=== PATIENT | female | born 1965 | race Caucasian/White ===

== ENCOUNTER 2016-11-15 15:51 | Inpatient (IN) | payer BC ==
[2016-11-15] MEDS ORDERED: LEVOFLOXACIN 750MG-D5W PMX 750 MG in DEXTROSE/WATER 1 150ML.BAG IVPB STA ×2 (15:54→17:11)
[2016-11-15] MEDS ORDERED: IBUPROFEN IV 600 MG in SODIUM CHLORIDE 0.9% 250 ML IV STA (15:54)
[2016-11-15] MEDS ORDERED: ACETAMINOPHEN IV (For NPO) 1,000 MG in EMPTY BAG 1 BAG IVPB STA (15:54)
[2016-11-15] MEDS ORDERED: PIPERACILLIN-TAZOBACTAM 3.375 GM in DEXTROSE/WATER 1 50ML.BAG IVPB STA (15:56)
--- NOTE | 2016-11-15 15:56 | ED ---
General Adult HPI - General Stated complaint: altered Time Seen by Provider: 11/15/16 15:51 Source: RN notes reviewed - History of Present Illness Initial comments: This is a female who is brought in by EMS at an unknown age but probably around 51. EMS was called to Dr. Anthony's parking lot with the patient was found with her . states she's been altered mental over the last few weeks and been jaundiced over the last few weeks but she's been refusing to go to the hospital. Patient is unable to give any history herself. According to EMS finally got her to get into the car because she was almost completely unresponsive and she couldn't refuse to go any longer. states she is a daily drinker according to EMS. states today she was also vomiting up coffee ground emesis. According to EMS had no further information aside from the altered mental status and the coffee-ground emesis. - Related Data Home Medications Medication Instructions Recorded Confirmed No Known Home Medications [No 11/15/16 11/15/16 Known Home Medications] Allergies Allergy/AdvReac Type Severity Reaction Status Date / Time No Known Allergies Allergy Verified 11/15/16 18:36 Review of Systems ROS Statement: Those systems with pertinent positive or pertinent negative responses have been documented in the HPI. ROS Other: All systems not noted in ROS Statement are negative. General Exam - General Exam Comments Initial Comments: GENERAL: Patient is well-developed and well-nourished. Patient is nontoxic and well- hydrated and is in moderate distress. ENT: Neck is soft and supple. No significant lymphadenopathy is noted. Oropharynx is clear. Moist mucous membranes. Neck has full range of motion without eliciting any pain. EYES: Patient has sclera icterus. Extraocular movements were intact and pupils were equal round and reactive to light. Eyelids were unremarkable. PULMONARY: Patient has crackles bilaterally through two thirds of the lung CARDIOVASCULAR: There is a regular rate and rhythm without any murmurs gallops or rubs. ABDOMEN: Soft and nontender with normal bowel sounds. No palpable organomegaly was noted. There is no palpable pulsatile mass. SKIN: Patient has multiple excoriated lesions none of which appear to be infected on her back and arms. NEUROLOGIC: Patient is alert and oriented 1. Cranial nerves II through XII are grossly intact. Motor and sensory are also intact. Normal speech, volume and content. Symmetrical smile. MUSCULOSKELETAL: Normal extremities with adequate strength and full range of motion. Patient has 2+ edema bilaterally more in the right than the left. LYMPHATICS: No significant lymphadenopathy is noted PSYCHIATRIC: Unable to secondary to altered mental status Course Vital Signs 11/15/16 11/15/16 11/15/16 15:56 16:44 17:35 Temperature 101.9 F H 101.1 F H Pulse Rate 111 H 106 H 103 H Respiratory 36 H 30 H 30 H Rate Blood Pressure 141/72 122/54 108/54 O2 Sat by Pulse 88 L 97 99 Oximetry Procedures - Intubation Time Out Performed: Yes Sedative: Versed Paralytic: Succinylcholine Laryngoscope: Herrera Size: 3 ET Tube Size: 8 ET Tube Uncuffed: No Tube Secured Location: teeth Tube Placement Confirmation: visualized tube passing through cords, equal breath sounds bilaterally, no breath sounds over epigastrium, confirmation by capnometry Patient Tolerated Procedure: well Intubation Complications: none Medical Decision Making - Medical Decision Making EKG shows sinus tachycardia at 110 bpm CO interval 166 QRS is 96 QT interval 354 QTC is 479. Patient's EKG shows no ST segment elevation or depression I went in to reevaluate the patient after having given Lasix she started having a little bit of low blood pressure psychiatric or more fluid at which point in time she had more difficult to breathing. At this point time I determined it was safer to intubate the patient. I and abated the patient without complication. Repeat portable chest for the intubation showed good placement of the ET tube - Lab Data Result diagrams: 11/15/16 16:00 11/15/16 16:00 Lab Results 11/15/16 11/15/16 11/15/16 Range/Units 16:00 16:00 16:00 WBC 9.5 (3.8-10.6) k/uL RBC 3.96 (3.80-5.40) m/uL Hgb 12.2 (11.4-16.0) gm/dL Hct 36.9 (34.0-46.0) % MCV 93.1 (80.0-100.0) fL MCH 30.9 (25.0-35.0) pg MCHC 33.2 (31.0-37.0) g/dL RDW 16.5 H (11.5-15.5) % Plt Count 233 (150-450) k/uL Neutrophils % 79 % Lymphocytes % 11 % Monocytes % 8 % Eosinophils % 0 % Basophils % 1 % Neutrophils # 7.6 (1.3-7.7) k/uL Lymphocytes # 1.0 (1.0-4.8) k/uL Monocytes # 0.7 (0-1.0) k/uL Eosinophils # 0.0 (0-0.7) k/uL Basophils # 0.1 (0-0.2) k/uL Hypochromasia Slight Poikilocytosis Slight Anisocytosis Slight PT (9.0-12.0) sec INR (<1.1) APTT (22.0-30.0) sec Sodium 140 (137-145) mmol/L Potassium 4.3 (3.5-5.1) mmol/L Chloride 112 H (98-107) mmol/L Carbon Dioxide 16 L (22-30) mmol/L Anion Gap 12 mmol/L BUN 18 H (7-17) mg/dL Creatinine 1.17 H (0.52-1.04) mg/dL Est GFR (MDRD) Af Amer 59 (>60 ml/min/1.73 sqM) Est GFR (MDRD) Non-Af 49 (>60 ml/min/1.73 sqM) Glucose 74 (74-99) mg/dL POC Glucose (mg/dL) (75-99) mg/dL POC Glu Keno Writer ID Plasma Lactic Acid Kentrell (0.7-2.0) mmol/L Calcium 8.4 (8.4-10.2) mg/dL Total Bilirubin 19.2 H* (0.2-1.3) mg/dL AST 112 H (14-36) U/L ALT 27 (9-52) U/L Alkaline Phosphatase 558 H (38-126) U/L Ammonia (<30) umol/L Total Creatine Kinase 381 H (30-135) U/L CK-MB (CK-2) 3.3 H* (0.0-2.4) ng/mL CK-MB (CK-2) Rel Index 0.9 Troponin I 0.016 (0.000-0.034) ng/mL NT-Pro-B Natriuret Pep pg/mL Total Protein 7.7 (6.3-8.2) g/dL Albumin 2.7 L (3.5-5.0) g/dL Urine Color Urine Appearance (Clear) Urine pH (5.0-8.0) Ur Specific [place] (1.001-1.035) Urine Protein (Negative) Urine Glucose (UA) (Negative) Urine Ketones (Negative) Urine Blood (Negative) Urine Nitrite (Negative) Urine Bilirubin (Negative) Urine Urobilinogen (<2.0) mg/dL Ur Leukocyte Esterase (Negative) Urine WBC (0-5) /hpf Ur Squamous Epith Cells (0-4) /hpf Urine Bacteria (None) /hpf Hyaline Casts (0-2) /lpf Urine Mucus (None) /hpf Influenza Type A RNA (Not Detectd) Influenza Type B (PCR) (Not Detectd) 11/15/16 11/15/16 11/15/16 Range/Units 16:00 16:00 16:00 WBC (3.8-10.6) k/uL RBC (3.80-5.40) m/uL Hgb (11.4-16.0) gm/dL Hct (34.0-46.0) % MCV (80.0-100.0) fL MCH (25.0-35.0) pg MCHC (31.0-37.0) g/dL RDW (11.5-15.5) % Plt Count (150-450) k/uL Neutrophils % % Lymphocytes % % Monocytes % % Eosinophils % % Basophils % % Neutrophils # (1.3-7.7) k/uL Lymphocytes # (1.0-4.8) k/uL Monocytes # (0-1.0) k/uL Eosinophils # (0-0.7) k/uL Basophils # (0-0.2) k/uL Hypochromasia Poikilocytosis Anisocytosis PT 24.4 H (9.0-12.0) sec INR 2.5 (<1.1) APTT 32.5 H (22.0-30.0) sec Sodium (137-145) mmol/L Potassium (3.5-5.1) mmol/L Chloride (98-107) mmol/L Carbon Dioxide (22-30) mmol/L Anion Gap mmol/L BUN (7-17) mg/dL Creatinine (0.52-1.04) mg/dL Est GFR (MDRD) Af Amer (>60 ml/min/1.73 sqM) Est GFR (MDRD) Non-Af (>60 ml/min/1.73 sqM) Glucose (74-99) mg/dL POC Glucose (mg/dL) (75-99) mg/dL POC Glu Keno Writer ID Plasma Lactic Acid Kentrell 2.8 H* (0.7-2.0) mmol/L Calcium (8.4-10.2) mg/dL Total Bilirubin (0.2-1.3) mg/dL AST (14-36) U/L ALT (9-52) U/L Alkaline Phosphatase (38-126) U/L Ammonia 148 H (<30) umol/L Total Creatine Kinase (30-135) U/L CK-MB (CK-2) (0.0-2.4) ng/mL CK-MB (CK-2) Rel Index Troponin I (0.000-0.034) ng/mL NT-Pro-B Natriuret Pep 1830 pg/mL Total Protein (6.3-8.2) g/dL Albumin (3.5-5.0) g/dL Urine Color Urine Appearance (Clear) Urine pH (5.0-8.0) Ur Specific [place] (1.001-1.035) Urine Protein (Negative) Urine Glucose (UA) (Negative) Urine Ketones (Negative) Urine Blood (Negative) Urine Nitrite (Negative) Urine Bilirubin (Negative) Urine Urobilinogen (<2.0) mg/dL Ur Leukocyte Esterase (Negative) Urine WBC (0-5) /hpf Ur Squamous Epith Cells (0-4) /hpf Urine Bacteria (None) /hpf Hyaline Casts (0-2) /lpf Urine Mucus (None) /hpf Influenza Type A RNA (Not Detectd) Influenza Type B (PCR) (Not Detectd) 11/15/16 11/15/16 11/15/16 Range/Units 16:00 16:00 16:08 WBC (3.8-10.6) k/uL RBC (3.80-5.40) m/uL Hgb (11.4-16.0) gm/dL Hct (34.0-46.0) % MCV (80.0-100.0) fL MCH (25.0-35.0) pg MCHC (31.0-37.0) g/dL RDW (11.5-15.5) % Plt Count (150-450) k/uL Neutrophils % % Lymphocytes % % Monocytes % % Eosinophils % % Basophils % % Neutrophils # (1.3-7.7) k/uL Lymphocytes # (1.0-4.8) k/uL Monocytes # (0-1.0) k/uL Eosinophils # (0-0.7) k/uL Basophils # (0-0.2) k/uL Hypochromasia Poikilocytosis Anisocytosis PT (9.0-12.0) sec INR (<1.1) APTT (22.0-30.0) sec Sodium (137-145) mmol/L Potassium (3.5-5.1) mmol/L Chloride (98-107) mmol/L Carbon Dioxide (22-30) mmol/L Anion Gap mmol/L BUN (7-17) mg/dL Creatinine (0.52-1.04) mg/dL Est GFR (MDRD) Af Amer (>60 ml/min/1.73 sqM) Est GFR (MDRD) Non-Af (>60 ml/min/1.73 sqM) Glucose (74-99) mg/dL POC Glucose (mg/dL) 67 L (75-99) mg/dL POC Glu Keno Writer ID Tarun Oneal Plasma Lactic Acid Kentrell (0.7-2.0) mmol/L Calcium (8.4-10.2) mg/dL Total Bilirubin (0.2-1.3) mg/dL AST (14-36) U/L ALT (9-52) U/L Alkaline Phosphatase (38-126) U/L Ammonia (<30) umol/L Total Creatine Kinase (30-135) U/L CK-MB (CK-2) (0.0-2.4) ng/mL CK-MB (CK-2) Rel Index Troponin I (0.000-0.034) ng/mL NT-Pro-B Natriuret Pep pg/mL Total Protein (6.3-8.2) g/dL Albumin (3.5-5.0) g/dL Urine Color Dark Brown Urine Appearance Cloudy H (Clear) Urine pH 6.5 (5.0-8.0) Ur Specific [place] 1.013 (1.001-1.035) Urine Protein 1+ H (Negative) Urine Glucose (UA) Negative (Negative) Urine Ketones Negative (Negative) Urine Blood Negative (Negative) Urine Nitrite Negative (Negative) Urine Bilirubin 4+ H (Negative) Urine Urobilinogen 4.0 (<2.0) mg/dL Ur Leukocyte Esterase Trace H (Negative) Urine WBC 1 (0-5) /hpf Ur Squamous Epith Cells <1 (0-4) /hpf Urine Bacteria Moderate H (None) /hpf Hyaline Casts 3 H (0-2) /lpf Urine Mucus Rare H (None) /hpf Influenza Type A RNA Not Detected (Not Detectd) Influenza Type B (PCR) Not Detected (Not Detectd) 11/15/16 Range/Units 17:15 WBC (3.8-10.6) k/uL RBC (3.80-5.40) m/uL Hgb (11.4-16.0) gm/dL Hct (34.0-46.0) % MCV (80.0-100.0) fL MCH (25.0-35.0) pg MCHC (31.0-37.0) g/dL RDW (11.5-15.5) % Plt Count (150-450) k/uL Neutrophils % % Lymphocytes % % Monocytes % % Eosinophils % % Basophils % % Neutrophils # (1.3-7.7) k/uL Lymphocytes # (1.0-4.8) k/uL Monocytes # (0-1.0) k/uL Eosinophils # (0-0.7) k/uL Basophils # (0-0.2) k/uL Hypochromasia Poikilocytosis Anisocytosis PT (9.0-12.0) sec INR (<1.1) APTT (22.0-30.0) sec Sodium (137-145) mmol/L Potassium (3.5-5.1) mmol/L Chloride (98-107) mmol/L Carbon Dioxide (22-30) mmol/L Anion Gap mmol/L BUN (7-17) mg/dL Creatinine (0.52-1.04) mg/dL Est GFR (MDRD) Af Amer (>60 ml/min/1.73 sqM) Est GFR (MDRD) Non-Af (>60 ml/min/1.73 sqM) Glucose (74-99) mg/dL POC Glucose (mg/dL) 78 (75-99) mg/dL POC Glu Keno Writer Antonette Caba Plasma Lactic Acid Kentrell (0.7-2.0) mmol/L Calcium (8.4-10.2) mg/dL Total Bilirubin (0.2-1.3) mg/dL AST (14-36) U/L ALT (9-52) U/L Alkaline Phosphatase (38-126) U/L Ammonia (<30) umol/L Total Creatine Kinase (30-135) U/L CK-MB (CK-2) (0.0-2.4) ng/mL CK-MB (CK-2) Rel Index Troponin I (0.000-0.034) ng/mL NT-Pro-B Natriuret Pep pg/mL Total Protein (6.3-8.2) g/dL Albumin (3.5-5.0) g/dL Urine Color Urine Appearance (Clear) Urine pH (5.0-8.0) Ur Specific [place] (1.001-1.035) Urine Protein (Negative) Urine Glucose (UA) (Negative) Urine Ketones (Negative) Urine Blood (Negative) Urine Nitrite (Negative) Urine Bilirubin (Negative) Urine Urobilinogen (<2.0) mg/dL Ur Leukocyte Esterase (Negative) Urine WBC (0-5) /hpf Ur Squamous Epith Cells (0-4) /hpf Urine Bacteria (None) /hpf Hyaline Casts (0-2) /lpf Urine Mucus (None) /hpf Influenza Type A RNA (Not Detectd) Influenza Type B (PCR) (Not Detectd) Critical Care Time Critical Care Time: Yes Total Critical Care Time: 45 Disposition Clinical Impression: Hepatic encephalopathy, Pneumonia, Sepsis, Pulmonary edema, Alcoholic hepatitis , Upper GI bleed Disposition: ADMITTED IP TO THIS [facility] Time of Disposition: 17:11
[2016-11-15] MEDS: SODIUM CHLORIDE 0.9% 500 ML IV SCH ×2 (16:09→17:16)
[2016-11-15] MEDS ORDERED: DEXTROSE 50%-WATER 50 ML SYRINGE IVP STA (16:14)
[2016-11-15 16:22] LABS: Glucose,Whole Blood 67 mg/dL (75-99)
[2016-11-15 16:40] LABS: Anisocytosis Slight; Basophils # (A) 0.1 k/uL (0-0.2); Basophils % (A) 1 %; CH 30.1; CHCM 32.6; Eosinophils % (A) 0 %; HCT 36.9 % (34.0-46.0); HDW 3.46; HGB 12.2 gm/dL (11.4-16.0); Hypochromasia Slight; Luc # (Auto) 0.17; Luc % (Auto) 2; Lymphocytes % (A) 11 %; MCH 30.9 pg (25.0-35.0); MCHC 33.2 g/dL (31.0-37.0); MCV 93.1 fL (80.0-100.0); Mean Platelet Volume 8.5; Monocytes # (A) 0.7 k/uL (0-1.0); Monocytes % (A) 8 %; Neutrophils # (A) 7.6 k/uL (1.3-7.7); Neutrophils % (A) 79 %; Poikilocytosis Slight; RBC 3.96 m/uL (3.80-5.40); RDW 16.5 % (11.5-15.5); WBC 9.5 k/uL (3.8-10.6); WBC (Perox) 9.42
[2016-11-15 16:43] LABS: Appearance,Urine Cloudy (Clear); Bacteria,Urine Moderate /hpf; Bilirubin,Urine 4+ (Negative); Glucose,Urine (UA) Negative (Negative); Ketones,Urine Negative (Negative); Leukocyte Esterase,Urine Trace (Negative); Mucus,Urine Rare /hpf; Nitrite,Urine Negative (Negative); PH, Urine 6.5 (5.0-8.0); Particle Count 26283; Protein,Urine 1+ (Negative); Specific Gravity,Urine 1.013 (1.001-1.035); Squamous Epithelial Cell,Urine <1 /hpf (0-4); UA Billing (MACRO vs. MICRO) MICRO; WBC,Urine 1 /hpf (0-5)
[2016-11-15 16:51] LABS: Calcium 8.4 mg/dL (8.4-10.2); Potassium 4.3 mmol/L (3.5-5.1); Total Protein 7.7 g/dL (6.3-8.2)
--- NOTE | 2016-11-15 16:51 | CT ---
EXAMINATION TYPE: CT brain wo con DATE OF EXAM: 11/15/2016 COMPARISON: NONE HISTORY: Altered mental status. CT DLP: 1106 mGycm Automated exposure control for dose reduction was used. FINDINGS: Central structures are midline. There is no evidence of hydrocephalus. No acute focal lesion, mass ef fect or midline shift is seen. I do not see evidence of intracranial blood. Visualized portions of the paranasal sinuses and mastoids are clear. No depressed skull fracture is s een. IMPRESSION: NO ACUTE INTRACRANIAL ABNORMALITY.
--- NOTE | 2016-11-15 16:58 | XR ---
EXAMINATION TYPE: XR chest 2V DATE OF EXAM: 11/15/2016 HISTORY: Fever. REFERENCE: NONE. FINDINGS: There is diffuse alveolar airspace disease. The heart is enlarged. Pulmonary vasculature is obscured. There is confluent left basilar airspace disease. I suspect small effusions. IMPRESSION: 1. FINDINGS MOST CONSISTENT WITH CONGESTIVE HEART FAILURE. 2. I COULD NOT EXCLUDE SUPERIMPOSED PNEUMONIA.
[2016-11-15 17:00] LABS: Total Bilirubin 19.2 mg/dL (0.2-1.3)
[2016-11-15] MEDS ORDERED: FUROSEMIDE 10 MG/ML 4 ML VIAL IV STA (17:10)
[2016-11-15 17:11] LABS: INR 2.5 (<1.1); Partial Thromboplastin Time 32.5 sec (22.0-30.0); Prothrombin Time 24.4 sec (9.0-12.0)
[2016-11-15] MEDS ORDERED: LACTULOSE 200 GM/300 ML (FROM 1/2 GAL JUG) RECTAL ONE (17:15)
[2016-11-15 17:18] LABS: Glucose,Whole Blood 78 mg/dL (75-99)
[2016-11-15] MEDS ORDERED: PANTOPRAZOLE 40 MG/10 ML VIAL IVP ONE (17:20)
[2016-11-15 17:23] LABS: Troponin I 0.016 ng/mL (0.000-0.034)
[2016-11-15 17:24] LABS: Creatine Kinase MB 3.3 ng/mL (0.0-2.4)
[2016-11-15] MEDS ORDERED: NALOXONE 0.4 MG/ML 1 ML VIAL IV PRN (17:37)
[2016-11-15] MEDS ORDERED: LACTULOSE 200 GM/300 ML (FROM 1/2 GAL JUG) RECTAL SCH ×2 (18:00→22:00)
[2016-11-15] MEDS ORDERED: SUCCINYLCHOLINE CHLORIDE VIAL 200 MG/10 ML VIAL IV STA (18:05)
[2016-11-15] MEDS ORDERED: MIDAZOLAM (PF) 1 MG/ML 5 ML VIAL IV STA (18:05)
[2016-11-15] MEDS: LORazepam 2 MG/ML SYRINGE IV STA ×2 (18:30→18:54)
--- NOTE | 2016-11-15 19:12 | XR ---
EXAMINATION TYPE: XR chest 1V portable DATE OF EXAM: 11/15/2016 COMPARISON: 11/15/2016 HISTORY: Endotracheal tube placement TECHNIQUE: Single frontal view of the chest is obtained. FINDINGS: Endotracheal tube has been placed in the interim terminating at the level of aortic arch, approximately 1.5 cm from the haydee. This is appropriately placed. There are overall low lung volume s with diffuse patchy alveolar and interstitial opacities. There is obscuration of the retrocardiac a irspace. Costophrenic angles are not well delineated. Multifocal opacities partially obscure the card iac silhouette, which appears prominent in size but similar to the prior. Degenerative changes are se en of the glenohumeral joints. IMPRESSION: 1. Interval placement of an appropriately placed endotracheal tube. 2. Low lung volumes with multifocal interstitial and alveolar opacities which may be on the basis of cardiogenic fluid overload although multifocal pneumonia is also a consideration.
[2016-11-15 19:16] LABS: ABG Base Excess -9.7 mmol/L; ABG HCO3 16 mmol/L (21-25); ABG PCO2 38 mmHg (35-45); ABG PH 7.25 (7.35-7.45); ABG PO2 129 mmHg (83-108); ABG TCO2 17 mmol/L (19-24)
[2016-11-15] MEDS ORDERED: PROPOFOL 50 ML IV ONE (20:00)
[2016-11-15 20:19] LABS: Glucose,Whole Blood 84 mg/dL (75-99)
[2016-11-15] MEDS ORDERED: SODIUM CHLORIDE 0.9% 1,000 ML IV ONE (20:40)
[2016-11-15] MEDS: PROPOFOL 500 MG in EMPTY BAG 1 BAG IV SCH (20:48)
[2016-11-15] MEDS: NOREPINEPHRIN 4 MG-0.9% NS PMX 4 MG/250 ML ML IV SCH (21:45)
[2016-11-15] MEDS: CHLORHEXIDINE GLUCONATE 15 ML CUP MUCOUS MEM SCH (22:08)
[2016-11-15] MEDS: PIPERACILLIN-TAZOBACTAM 3.375 GM in DEXTROSE/WATER 1 50ML.BAG IVPB SCH (23:41)
[2016-11-15] MEDS: FUROSEMIDE 10 MG/ML 2 ML VIAL IV SCH (23:42)
[2016-11-16 00:07] LABS: Anisocytosis Slight; CHCM 32.3; HCT 29.7 % (34.0-46.0); Hypochromasia Slight; MCH 31.2 pg (25.0-35.0); MCHC 33.3 g/dL (31.0-37.0); MCV 93.8 fL (80.0-100.0); Mean Platelet Volume 8.6; Poikilocytosis Slight; RBC 3.16 m/uL (3.80-5.40); RDW 16.4 % (11.5-15.5)
[2016-11-16 00:23] LABS: HGB 9.9 gm/dL (11.4-16.0); WBC 69.6 k/uL (3.8-10.6)
[2016-11-16] MEDS: PROPOFOL 500 MG in EMPTY BAG 1 BAG IV SCH ×2 (00:46→04:30)
[2016-11-16] MEDS: NOREPINEPHRIN 4 MG-0.9% NS PMX 4 MG/250 ML ML IV SCH ×3 (00:47→07:06)
[2016-11-16] MEDS: LACTULOSE 200 GM/300 ML (FROM 1/2 GAL JUG) RECTAL SCH ×3 (00:48→13:07)
[2016-11-16 02:02] LABS: Anisocytosis Slight; CH 29.8; CHCM 31.5; HCT 30.5 % (34.0-46.0); Hypochromasia Moderate; MCH 31.3 pg (25.0-35.0); MCHC 32.7 g/dL (31.0-37.0); MCV 95.7 fL (80.0-100.0); Mean Platelet Volume 8.6; Poikilocytosis Slight; RBC 3.19 m/uL (3.80-5.40); RDW 16.7 % (11.5-15.5)
[2016-11-16 02:06] LABS: WBC 76.9 k/uL (3.8-10.6)
[2016-11-16 03:30] LABS: Glucose,Whole Blood 99 mg/dL (75-99)
[2016-11-16] MEDS ORDERED: IV VANCOMYCIN PER PHARMACY 1 EACH MISC MISCELLANE PRN (03:55)
[2016-11-16] MEDS ORDERED: VANCOMYCIN 1,750 MG in SODIUM CHLORIDE 0.9% 250 ML IVPB ONE (05:00)
[2016-11-16 05:22] LABS: ABG Base Excess -8.4 mmol/L; ABG HCO3 17 mmol/L (21-25); ABG PCO2 33 mmHg (35-45); ABG PH 7.32 (7.35-7.45); ABG PO2 262 mmHg (83-108); ABG TCO2 18 mmol/L (19-24)
[2016-11-16 05:52] LABS: Calcium 7.1 mg/dL (8.4-10.2); Magnesium 2.1 mg/dL (1.6-2.3); Potassium 3.1 mmol/L (3.5-5.1)
[2016-11-16 05:59] LABS: Phosphorous 8.5 mg/dL (2.5-4.5)
[2016-11-16] MEDS ORDERED: Potassium Replacement Protocol 1 EACH MISC MISCELLANE PRN (06:00)
[2016-11-16 06:13] LABS: Anisocytosis Slight; CH 29.4; CHCM 31.1; HDW 3.47; Hypochromasia Moderate; MCHC 32.4 g/dL (31.0-37.0); MCV 95.6 fL (80.0-100.0); Mean Platelet Volume 8.6; Poikilocytosis Slight; RBC 3.24 m/uL (3.80-5.40); RDW 16.6 % (11.5-15.5); WBC (Perox) 71.93
[2016-11-16 06:32] LABS: WBC 69.1 k/uL (3.8-10.6)
[2016-11-16] MEDS: POTASSIUM CHLORIDE 10 MEQ, LIDOCAINE 2% INJ 10 MG in SODIUM CHLORIDE 0.9% 100 ML IV SCH ×2 (06:33→10:51)
--- NOTE | 2016-11-16 06:55 | XR ---
EXAMINATION TYPE: XR chest 1V DATE OF EXAM: 11/16/2016 HISTORY: Shortness of breath. COMPARISON: 11/15/2016 TECHNIQUE: Single view of the chest is submitted. FINDINGS: Endotracheal tube is is now 6 cm from the level of the haydee. Scattered airspace and interstitial infiltrates throughout both lung granger are essentially unchanged . The heart is stable. Hilar and mediastinal structures are within normal limits. IMPRESSION: 1. Scattered airspace and interstitial infiltrates throughout both lung granger are essentially uncha nged.
[2016-11-16 07:12] LABS: Add Differential Manual Differential
[2016-11-16 07:17] LABS: Metamyelocytes % 0.5 %; Nucleated Red Blood Cells 0 /100 WBC (0-0); Total Cells Counted 200
[2016-11-16 07:19] LABS: Toxic Vacuolation Present
[2016-11-16 07:23] LABS: Polychromasia Present
[2016-11-16 07:24] LABS: Large Platelets Present
[2016-11-16 08:13] LABS: Amylase <30 U/L (30-110)
[2016-11-16 08:22] LABS: INR 2.7 (<1.1); Prothrombin Time 25.9 sec (9.0-12.0)
[2016-11-16 08:45] LABS: Hepatitis B Surface Ag Index 0.09
[2016-11-16 08:50] LABS: Hepatitis B Core IgM Index 0.04
[2016-11-16] MEDS ORDERED: PANTOPRAZOLE 40 MG/10 ML VIAL IVP SCH (09:00)
[2016-11-16 09:02] LABS: Hepatitis C Virus IgG Ab Negative (Negative)
[2016-11-16] MEDS ORDERED: CISATRACURIUM 2 MG/ML 5 ML VIAL IV ONE (09:44)
--- NOTE | 2016-11-16 09:45 | P.CONS ---
History of Present Illness - Reason for Consult Consult date: 11/16/16 Alcohol hepatitis upper GI bleed Requesting physician: Gaurav Gardner - History of Present Illness 51-year-old female with a history of EtOH abuse presented to the hospital by EMS. Nursing staff and medical records reviewed for additional history. According to patient's spouse she has been jaundiced for a few weeks refusing to go the hospital with altered mental status. Episodes of coffee-ground emesis. Presently intubated. Sedated. White count 69.6-76.9. Hemoglobin 9.9-10. Platelet 205-219. INR 2.5. Influenza panel negative. Total bilirubin 19.2. AST 112. ALT 27. Alk phos 550. Ammonia 148. Lactic acid 2.8. Preliminary blood cultures gram-negative rods. Norepinephrine 28 mcg. resting reports no evidence of hematemesis hematochezia or melena. Review of Systems Unable to obtain see history of present illness. ROS unobtainable: due to endotracheal tube, due to mental status All systems: negative (See HPI) Past Medical History Past Medical History: COPD, Hypertension, Pneumonia History of Any Multi-Drug Resistant Organisms: None Reported Past Surgical History: No Surgical Hx Reported Past Psychological History: No Psychological Hx Reported Smoking Status: Current every day smoker Past Alcohol Use History: Abuse Past Drug Use History: None Reported Medications and Allergies Home Medications Medication Instructions Recorded Confirmed Type No Known Home Medications [No 11/15/16 11/15/16 History Known Home Medications] Allergies Allergy/AdvReac Type Severity Reaction Status Date / Time No Known Allergies Allergy Verified 11/15/16 18:36 Physical Exam Vitals: Vital Signs Temp Pulse Resp BP Pulse Ox 11/16/16 07:00 93 34 H 103/51 100 11/16/16 06:30 85 17 86/46 97 11/16/16 06:00 98.9 F 88 17 111/58 94 L 11/16/16 05:30 81 17 93/47 99 11/16/16 05:00 101 H 27 H 93/46 96 11/16/16 04:30 99 26 H 97/53 99 11/16/16 04:00 99.9 F H 98 24 108/54 99 11/16/16 03:40 32 H 11/16/16 03:30 100 32 H 110/61 99 11/16/16 03:00 100 38 H 119/64 100 06/17 02:30 90 16 96/52 99 11/16/16 02:00 82 14 90/48 99 11/16/16 01:30 82 16 93/49 98 11/16/16 01:00 94 25 H 105/59 98 11/16/16 00:30 79 14 90/48 99 11/16/16 00:00 98.9 F 81 14 87/45 98 11/15/16 23:30 81 20 84/44 98 11/15/16 23:04 76 17 85/47 11/15/16 23:00 81 21 85/47 99 11/15/16 22:45 78 22 90/49 100 11/15/16 22:30 78 35 H 79/47 99 11/15/16 22:15 81 32 H 79/47 99 11/15/16 22:00 81 45 H 79/53 98 11/15/16 21:45 79 22 70/42 99 11/15/16 21:30 85 14 74/46 98 11/15/16 21:15 86 17 73/41 98 11/15/16 21:00 87 15 68/48 99 11/15/16 20:45 113 H 20 62/41 98 11/15/16 20:30 91 20 74/45 97 11/15/16 20:15 99 18 91/63 98 11/15/16 20:00 98.3 F 71 20 97/62 99 11/15/16 19:55 98.0 F 103 H 18 125/66 99 11/15/16 18:54 97 16 116/62 99 11/15/16 17:35 103 H 30 H 108/54 99 11/15/16 16:44 101.1 F H 106 H 30 H 122/54 97 11/15/16 15:56 101.9 F H 111 H 36 H 141/72 88 L Intake and Output 11/15/16 11/16/16 11/16/16 22:59 06:59 14:59 Intake Total 1098.930 839.406 110 Output Total 60 1470 125 Balance 1038.930 -630.594 -15 Intake: IV 1040 160 20 0.9 40 160 20 Sodium Chloride 0.9% 1, 1000 000 ml @ 999 mls/hr IV . Q1H1M ONE Rx#:[id number] Intake, IV Titration 58.930 679.406 90 Amount Norepinephrin 4 mg-0.9% 51.250 567.187 90 Ns Pmx 4 mg In 250 ml @ Titrate IV .Q0M MANDY Rx#: [id number] Propofol 500 mg In Empty 7.68 112.219 Bag 1 bag @ Titrate IV . Q0M MANDY Rx#:[id number] Output: Urine 60 1470 125 Other: Voiding Method Indwelling Catheter Indwelling Catheter Weight 92.6 kg 93.8 kg General appearance: The patient is intubated sedated. Visibly jaundice. HET: Head is normocephalic and atraumatic. Pupils are equal and reactive. Sclerae icterus. Oropharynx with endotracheal tube. Neck: Supple without lymphadenopathy. Trachea midline. Heart: S1 S2. Regular rate and rhythm. Lungs: No crackles or wheezes are heard. Abdomen: Soft, nondistended with bowel sounds. No peritoneal signs. No palpable organomegaly or masses. Extremities: No cyanosis, rash, ulceration, clubbing, or edema. Radial and pedal pulses are 2/4 bilaterally. Zhou with dark karissa urine. Neurological: Intubated. Sedated. Results CBC & Chem 7: 11/16/16 05:16 11/16/16 05:16 Labs: Abnormal Lab Results - Last 24 Hours (Table) 11/15/16 11/15/16 11/15/16 Range/Units 16:00 16:00 16:00 WBC (3.8-10.6) k/uL RBC (3.80-5.40) m/uL Hgb (11.4-16.0) gm/dL Hct (34.0-46.0) % RDW 16.5 H (11.5-15.5) % Neutrophils # (Manual) (1.3-7.7) k/uL Monocytes # (Manual) (0-1.0) k/uL PT (9.0-12.0) sec APTT (22.0-30.0) sec ABG pH (7.35-7.45) ABG pCO2 (35-45) mmHg ABG pO2 (83-108) mmHg ABG HCO3 (21-25) mmol/L ABG Total CO2 (19-24) mmol/L ABG O2 Saturation (94-97) % Potassium (3.5-5.1) mmol/L Chloride 112 H (98-107) mmol/L Carbon Dioxide 16 L (22-30) mmol/L BUN 18 H (7-17) mg/dL Creatinine 1.17 H (0.52-1.04) mg/dL POC Glucose (mg/dL) (75-99) mg/dL Plasma Lactic Acid Kentrell (0.7-2.0) mmol/L Calcium (8.4-10.2) mg/dL Phosphorus (2.5-4.5) mg/dL Total Bilirubin 19.2 H* (0.2-1.3) mg/dL AST 112 H (14-36) U/L Alkaline Phosphatase 558 H (38-126) U/L Ammonia (<30) umol/L Total Creatine Kinase 381 H (30-135) U/L CK-MB (CK-2) 3.3 H* (0.0-2.4) ng/mL Albumin 2.7 L (3.5-5.0) g/dL Urine Appearance (Clear) Urine Protein (Negative) Urine Bilirubin (Negative) Ur Leukocyte Esterase (Negative) Urine Bacteria (None) /hpf Hyaline Casts (0-2) /lpf Urine Mucus (None) /hpf 11/15/16 11/15/16 11/15/16 Range/Units 16:00 16:00 16:00 WBC (3.8-10.6) k/uL RBC (3.80-5.40) m/uL Hgb (11.4-16.0) gm/dL Hct (34.0-46.0) % RDW (11.5-15.5) % Neutrophils # (Manual) (1.3-7.7) k/uL Monocytes # (Manual) (0-1.0) k/uL PT 24.4 H (9.0-12.0) sec APTT 32.5 H (22.0-30.0) sec ABG pH (7.35-7.45) ABG pCO2 (35-45) mmHg ABG pO2 (83-108) mmHg ABG HCO3 (21-25) mmol/L ABG Total CO2 (19-24) mmol/L ABG O2 Saturation (94-97) % Potassium (3.5-5.1) mmol/L Chloride (98-107) mmol/L Carbon Dioxide (22-30) mmol/L BUN (7-17) mg/dL Creatinine (0.52-1.04) mg/dL POC Glucose (mg/dL) (75-99) mg/dL Plasma Lactic Acid Kentrell 2.8 H* (0.7-2.0) mmol/L Calcium (8.4-10.2) mg/dL Phosphorus (2.5-4.5) mg/dL Total Bilirubin (0.2-1.3) mg/dL AST (14-36) U/L Alkaline Phosphatase (38-126) U/L Ammonia 148 H (<30) umol/L Total Creatine Kinase (30-135) U/L CK-MB (CK-2) (0.0-2.4) ng/mL Albumin (3.5-5.0) g/dL Urine Appearance Cloudy H (Clear) Urine Protein 1+ H (Negative) Urine Bilirubin 4+ H (Negative) Ur Leukocyte Esterase Trace H (Negative) Urine Bacteria Moderate H (None) /hpf Hyaline Casts 3 H (0-2) /lpf Urine Mucus Rare H (None) /hpf 11/15/16 11/15/16 11/15/16 Range/Units 16:08 18:45 23:25 WBC 69.6 H* (3.8-10.6) k/uL RBC 3.16 L (3.80-5.40) m/uL Hgb 9.9 L D (11.4-16.0) gm/dL Hct 29.7 L (34.0-46.0) % RDW 16.4 H (11.5-15.5) % Neutrophils # (Manual) (1.3-7.7) k/uL Monocytes # (Manual) (0-1.0) k/uL PT (9.0-12.0) sec APTT (22.0-30.0) sec ABG pH 7.25 L (7.35-7.45) ABG pCO2 (35-45) mmHg ABG pO2 129 H (83-108) mmHg ABG HCO3 16 L (21-25) mmol/L ABG Total CO2 17 L (19-24) mmol/L ABG O2 Saturation 98.0 H (94-97) % Potassium (3.5-5.1) mmol/L Chloride (98-107) mmol/L Carbon Dioxide (22-30) mmol/L BUN (7-17) mg/dL Creatinine (0.52-1.04) mg/dL POC Glucose (mg/dL) 67 L (75-99) mg/dL Plasma Lactic Acid Kentrell (0.7-2.0) mmol/L Calcium (8.4-10.2) mg/dL Phosphorus (2.5-4.5) mg/dL Total Bilirubin (0.2-1.3) mg/dL AST (14-36) U/L Alkaline Phosphatase (38-126) U/L Ammonia (<30) umol/L Total Creatine Kinase (30-135) U/L CK-MB (CK-2) (0.0-2.4) ng/mL Albumin (3.5-5.0) g/dL Urine Appearance (Clear) Urine Protein (Negative) Urine Bilirubin (Negative) Ur Leukocyte Esterase (Negative) Urine Bacteria (None) /hpf Hyaline Casts (0-2) /lpf Urine Mucus (None) /hpf 11/16/16 11/16/16 11/16/16 Range/Units 01:51 04:48 05:16 WBC 76.9 H* 69.1 H* (3.8-10.6) k/uL RBC 3.19 L 3.24 L (3.80-5.40) m/uL Hgb 10.0 L 10.0 L (11.4-16.0) gm/dL Hct 30.5 L 31.0 L (34.0-46.0) % RDW 16.7 H 16.6 H (11.5-15.5) % Neutrophils # (Manual) 63.2 H (1.3-7.7) k/uL Monocytes # (Manual) 1.7 H (0-1.0) k/uL PT (9.0-12.0) sec APTT (22.0-30.0) sec ABG pH 7.32 L (7.35-7.45) ABG pCO2 33 L (35-45) mmHg ABG pO2 262 H (83-108) mmHg ABG HCO3 17 L (21-25) mmol/L ABG Total CO2 18 L (19-24) mmol/L ABG O2 Saturation 100.0 H (94-97) % Potassium (3.5-5.1) mmol/L Chloride (98-107) mmol/L Carbon Dioxide (22-30) mmol/L BUN (7-17) mg/dL Creatinine (0.52-1.04) mg/dL POC Glucose (mg/dL) (75-99) mg/dL Plasma Lactic Acid Kentrell (0.7-2.0) mmol/L Calcium (8.4-10.2) mg/dL Phosphorus (2.5-4.5) mg/dL Total Bilirubin (0.2-1.3) mg/dL AST (14-36) U/L Alkaline Phosphatase (38-126) U/L Ammonia (<30) umol/L Total Creatine Kinase (30-135) U/L CK-MB (CK-2) (0.0-2.4) ng/mL Albumin (3.5-5.0) g/dL Urine Appearance (Clear) Urine Protein (Negative) Urine Bilirubin (Negative) Ur Leukocyte Esterase (Negative) Urine Bacteria (None) /hpf Hyaline Casts (0-2) /lpf Urine Mucus (None) /hpf 11/16/16 11/16/16 Range/Units 05:16 05:16 WBC (3.8-10.6) k/uL RBC (3.80-5.40) m/uL Hgb (11.4-16.0) gm/dL Hct (34.0-46.0) % RDW (11.5-15.5) % Neutrophils # (Manual) (1.3-7.7) k/uL Monocytes # (Manual) (0-1.0) k/uL PT (9.0-12.0) sec APTT (22.0-30.0) sec ABG pH (7.35-7.45) ABG pCO2 (35-45) mmHg ABG pO2 (83-108) mmHg ABG HCO3 (21-25) mmol/L ABG Total CO2 (19-24) mmol/L ABG O2 Saturation (94-97) % Potassium 3.1 L (3.5-5.1) mmol/L Chloride 113 H (98-107) mmol/L Carbon Dioxide 14 L (22-30) mmol/L BUN 21 H (7-17) mg/dL Creatinine 1.36 H (0.52-1.04) mg/dL POC Glucose (mg/dL) (75-99) mg/dL Plasma Lactic Acid Kentrell (0.7-2.0) mmol/L Calcium 7.1 L (8.4-10.2) mg/dL Phosphorus 8.5 H* (2.5-4.5) mg/dL Total Bilirubin (0.2-1.3) mg/dL AST (14-36) U/L Alkaline Phosphatase (38-126) U/L Ammonia 134 H (<30) umol/L Total Creatine Kinase (30-135) U/L CK-MB (CK-2) (0.0-2.4) ng/mL Albumin (3.5-5.0) g/dL Urine Appearance (Clear) Urine Protein (Negative) Urine Bilirubin (Negative) Ur Leukocyte Esterase (Negative) Urine Bacteria (None) /hpf Hyaline Casts (0-2) /lpf Urine Mucus (None) /hpf Microbiology - Last 24 Hours (Table) 11/15/16 19:41 Gram Stain - Preliminary Sputum Sputum Culture - Preliminary 11/15/16 16:00 Blood Culture - Preliminary Blood 11/15/16 16:00 Urine Culture - Preliminary Urine,Catheterized Assessment and Plan (1) Alcoholic hepatitis Narrative/Plan: Severe alcohol hepatitis possible alcohol pancreatitis. Status: Acute (2) Upper GI bleed Narrative/Plan: Reported coffee-ground emesis her spouse prior to admission Status: Acute (3) Coffee ground emesis Status: Acute (4) Hepatic encephalopathy Status: Acute (5) Sepsis Status: Acute (6) Gram-negative bacteremia Status: Acute Plan: 1. Continue lactulose enemas, GI prophylaxis. Central line insertion. Recommend ultrasound abdomen. 2. Additional chemistries have been requested such as pancreatic enzymes, hepatitis panel, and repeat PT/INR. Patient's clinical course is critical therefore would recommend transfer to a tertiary care center. Treatment of alcohol hepatitis with steroids is contraindicated this time with evidence of hepatic encephalopathy and reports of GI bleed coffee-ground emesis. 3. Continue supportive measures. Antibiotics. Multiple consultants following. 4. Avoid hepatotoxic medications. Thank you for this kind referral and the opportunity to participate in the care of your patient. This consultation was discussed with Dr. Ward. The impression and plan of care have been directed as dictated.
--- NOTE | 2016-11-16 10:09 | CONS ---
DATE OF CONSULTATION: A 51-year-old alcoholic, brought in by EMS. The patient was initially brought to Dr. Anthony's office by her . She was apparently unresponsive. She had mental status changes over the last number of days and weeks prior to coming over. She apparently was quite jaundiced as well. EMS was called at Dr. Anthony's office. She was brought into the emergency room. She was initially being managed conservatively there with some fluids and some lactulose and eventually mental status changes occurred and the patient was intubated by Dr. Lynch in the ER. The patient also has a GI bleed with coffee ground emesis. The patient's history is not well known. So she was admitted with a diagnosis of GI bleed, mental status changes, acute liver failure, chronic alcoholic liver disease and poorly responsive mental status. Again, she was intubated on 11/15, admitted on 11/15. Currently she is on IV Levophed at 28 mcg per minute, Diprivan a 45 mcg/kg per minute and a 0.9 IV at 20. The plan is to ship her to [facility]. She is being taken care of by [facility] here in the ICU. Vent settings are the assist control mode rate of 14, tidal volume 450, FiO2 of 70%, PEEP of 5. Blood gases show a pO2 of 262, pCO2 of 33, pH of 7.32. This is consistent with metabolic acidosis. The patient's blood gases were done on 100%. On the summary page, we do not know anything about the patient's home medications. Apparently, there is no known allergies. Current medications include chlorhexidine, Lasix, lactulose, Levaquin, Narcan, Levophed, Protonix, propofol, vancomycin. Again, no other history is known, family, occupational etc., etc. Current vital signs reveal a temperature 98.9, heart rate 93, respiratory rate 20, blood pressure 103/51, mean 68, saturations are in the high 90s on the 70% and 5 of PEEP. Appears sedated. HEENT examination is grossly unremarkable. She is jaundice. There is scleral icterus. NECK: Supple. Full range of motion. No adenopathy. Cardiovascular examination reveals regular rhythm and rate. Heart rate mid 80s. S1, S2 normal. No murmur. Lungs reveal a few scattered rhonchi. ABDOMEN: Soft. Bowel sounds are noted. Extremities are intact. Skin shows evidence of jaundice. No lesions. NEUROLOGIC EXAM: Cannot be performed. Labs are reviewed. White count 69.1, hemoglobin 10, hematocrit 31.0, platelet count 219,000. PT, INR, PT, INR is 25.9 and 2.7. Blood gases have been noted. Sodium 142, potassium 3.1, chloride is 113, CO2 of 14. Anion gap 15. BUN and creatinine were 21 and 1.36. Calcium is 7.1. Phosphorus 8.5. Lactic acid 1.2. Ammonia 134. Amylase less than 30. Lipase less than 10. Hepatitis serology is all negative. Chest x-ray shows bibasilar bilateral airspace disease. Consistent with either acute lung injury/early ARDS or fluid overload. ASSESSMENT: 1. Acute liver failure. 2. Chronic alcohol abuse. 3. Probable alcoholic cirrhosis. 4. Coagulopathy. 5. Metabolic acidosis. 6. Hyperbilirubinemia. 7. Hyperammonemia. 8. Hypoalbuminemia. PLAN: The patient will be shipped to [facility]. Before she goes, I will go ahead and put a central line in and art line in here. No additional recommendations are made. Prognosis is extremely poor. I just do not think we cannot send her without some better IV access. Additional recommendations and suggestions forthcoming. Again prognosis is very poor.
--- NOTE | 2016-11-16 10:31 | PCN ---
DATE OF PROCEDURE: TRIPLE LUMEN CATHETER PLACEMENT Indication: Hemodynamic monitoring/Intravenous access. A time-out was completed verifying correct patient, procedure, site, positioning, and implant(s) or special equipment if applicable. The patient was placed in a dependent position appropriate for triple lumen catheter placement based on the vein to be cannulated. The patient's right groin was prepped and draped in sterile fashion. 1% Lidocaine was used to anesthetize the surrounding skin area. A triple lumen 9F Cordis catheter was introduced into the right common femoral vein using Seldinger technique. The catheter was threaded smoothly over the guide wire and appropriate blood return was obtained. Each lumen of the catheter was evacuated of air and flushed with sterile saline. The catheter was then sutured in place to the skin and a sterile dressing applied. Perfusion to the extremity distal to the point of catheter insertion was checked and found to be adequate. There was no immediate complications. The patient tolerated the procedure well. There was good blood return from all 3 ports. The catheter was sutured in place. There was no immediate complication. Sterile dressing was applied by the nurse.
[2016-11-16] MEDS: PIPERACILLIN-TAZOBACTAM 3.375 GM in DEXTROSE/WATER 1 50ML.BAG IVPB SCH (10:53)
[2016-11-16] MEDS: FUROSEMIDE 10 MG/ML 2 ML VIAL IV SCH ×2 (10:53→15:25)
[2016-11-16] MEDS: CHLORHEXIDINE GLUCONATE 15 ML CUP MUCOUS MEM SCH (10:53)
--- NOTE | 2016-11-16 11:19 | PCN ---
DATE OF PROCEDURE: 11/17/2016 PROCEDURE: LEFT RADIAL ARTERIAL LINE INSERTION INDICATION: Hemodynamic monitoring. A time-out was completed verifying correct patient, procedure, site, positioning, and implant(s) or special equipment if applicable. Alverto's test was performed to ensure adequate perfusion. The patient's left wrist was prepped and draped in sterile fashion. 1% Lidocaine was used to anesthetize the area. An 18G Arrow arterial line was introduced into the radial artery. The catheter was threaded over the guide wire and the needle was removed with appropriate pulsatile blood return. Blood loss was minimal. The catheter was then sutured in place to the skin and a sterile dressing applied. Perfusion to the extremity distal to the point of catheter insertion was checked and found to be adequate. The patient tolerated the procedure well and there were no immediate complications. SCOTT
[2016-11-16 11:30] VITALS: TEMP 99.1
[2016-11-16] MEDS ORDERED: PHYTONADIONE 10 MG in SODIUM CHLORIDE 0.9% 50 ML IVPB STA (11:31)
[2016-11-16 13:05] VITALS: BP 105/58; PULSE 97; RESP 25
[2016-11-16] MEDS ORDERED: VANCOMYCIN 1,500 MG in SODIUM CHLORIDE 0.9% 250 ML IVPB SCH ×2 (14:00→20:00)
--- NOTE | 2016-11-16 15:08 | HP ---
DATE OF ADMISSION: Patient is a 51-year-old alcoholic, possible alcoholic cirrhosis. Came in with severe alcoholic hepatitis. Patient was seen in Dr. Anthony's primary care physician's office as patient has been lethargic, less responsive and patient came to ER with similar symptoms and apparently patient had an upper GI bleed at that point of time. Patient was jaundiced and patient later in the ER, found to be severely lethargic. Patient was subsequently admitted to ICU. Patient presently is intubated, sedated and the patient came in with WBC count of 9500, now has gone up to 80,000 WBC, neutrophilic predominance. The only source of sepsis that we can find is diffuse infiltrate on the lungs, may be some atypical pneumonic process. Patient is on broad-spectrum antibiotics in the form of Zosyn. Patient is on 70% FiO2, PEEP of 5 and patient is intubated, mostly because patient is severely lethargic, unable to protect her airway. Patient other significant issues are as follows: 1. Possible acute alcoholic hepatitis with highly elevated INR of 2.5 for which 10 mg of vitamin K will be given and patient probably has cirrhosis as well although liver enzymes had not highly elevated at this point of time, 2. Patient probably has esophageal varices which were never proven at this point of time, which led to her upper gastrointestinal bleed. Patient is on Protonix. Patient is not on octreotide at this point of time. Patient upper gastrointestinal bleed, although did improve. Patient does not have an NG tube because of concerns of these varices. 3. Possible hepatic encephalopathy with highly elevated ammonia of 135. Patient was receiving rectal lactulose without any significant bowel movement. We cannot give Rifaximin as patient cannot take anything oral at this point of time, as patient does not have a NG tube. 4. Patient has acute hypoxic respiratory failure secondary to severe sepsis, one possible source being lung as mentioned above with diffuse infiltrates and patient is on Levophed at 25 mcg/h. 5. Patient is also on propofol. Patient is presently breathing over the ventilator. Patient's ABG showed pH of 7.32, pCO2 of 33, pO2 of 262. Patient has leukocytosis secondary to that. 6. Obstructive jaundice, probably because of cirrhosis along with some alcoholic hepatitis. Patient's bilirubin is 19.2 7. Acute renal failure can be acute tubular necrosis. Patient does have decent urine output. Patient is on 125 mL of normal saline at this point of time. Patient does have ascites, with shifting dullness, but no fluid fill. Patient's CT of the head did not show any cerebral edema or uncal herniation at this point of time, midline shift. Hepatitis panel what was done here is negative. There are some electrolyte imbalances including low potassium of 3.1, and hyperchloremia secondary to IV fluids. Patient has anion gap 15 with lactic acid of 1.2. REVIEW OF SYSTEMS: Unable to obtain. Past medical history that was obtained from the medical records shows COPD, hypertension, pneumonia. SOCIAL HISTORY: Patient was apparently a smoker, alcohol abuse history. The rest of the history is unknown at this point of time. PHYSICAL EXAMINATION: VITAL SIGNS: Temperature 99.1. Patient was febrile when she came in. A 24-hour T-max is 101.9, pulse of 97, respiratory rate of 25. Blood pressure is 105/58, saturating at 96% on above-mentioned vent settings. Patient is intubated, sedated, RADs score of around -2 to -3 as patient is easily getting agitated because of probable alcohol withdrawal. GENERAL: The patient is alert and oriented x3, not in any acute distress. Well developed, well nourished. CARDIOVASCULAR: S1 and S2 present. No murmurs, rubs, or gallops. PULMONARY: Chest is clear to auscultation, no wheezing or crackles. MUSCULOSKELETAL: No joint swelling or deformity. EXTREMITIES: No cyanosis, clubbing, or pedal edema. SKIN: No rashes. NEURO EXAMINATION: Unable to performed ABDOMEN: Bowel sounds are present. Abdomen is soft, does have a little bit of fluid in the abdomen probably, no significant ascites. HEENT EXAMINATION: Patient is jaundiced with scleral icterus. LABORATORY DATA: Significant most of the significant lab data was discussed above. Patient has leukocytosis of around 69,000. ABGs as mentioned above, hepatitis panel is negative. Brain CT did not show any significant abnormality. Chest x-ray showed diffuse interstitial infiltrate. ASSESSMENT: As dictated in the HPI itself. Patient will be transferred to [facility] as per recommendation from rock room worker. A right inguinal central line was placed and patient had an arterial line in the left radial arterial line. FINAL DIAGNOSES: 1. Acute liver failure, acute hepatic cirrhosis, chronic alcohol abuse. 2. Coagulability secondary to liver disease. 3. Metabolic acidosis. 4. Hyperammonemia. 5. Hepatic encephalopathy. 6. Septic shock possible source being lung or may be even aspiration. Patient is on broad-spectrum antibiotics as mentioned above. Spent about 80 minutes of critical care time in managing the patient, including discussion with the rock room worker in [facility] for transfer.
[2016-11-16] MEDS ORDERED: NOREPINEPHRIN 16 MG-0.9%NS PMX 16 MG/250 ML ML IV SCH (15:15)
--- NOTE | 2016-11-16 17:44 | CONS ---
DATE OF CONSULTATION: 11/16/2016 REASON FOR CONSULTATION: Gram-negative bacteremia. HISTORY OF PRESENT ILLNESS: The patient is a 51-year-old female who was brought into the ER by EMS from her PCP's office parking lot after the patient presented with mental status changes, and apparently the patient ( ) over the last few weeks. However, the patient has been refusing to go to the hospital. Patient remains a heavy drinker. EMS arrived and found the patient to be completely unresponsive. She was also noticed have coffee-ground emesis. With these symptoms, the patient was brought into the ER and was evaluated by the ER physician. The patient did require intubation in the ER and then she was admitted to the ICU. Patient was noticed to have a fever of 101.9 degrees Fahrenheit. Blood culture has been obtained which is showing Gram-negative bacilli. White count was elevated to 69.6 with repeat 76.9 with hepatitis panel being negative. Patient has been treated with broad-spectrum antibiotics in the form of vancomycin, Zosyn and Levaquin. I was asked to see the patient for further recommendations. Because of her bacteremia, the patient did have a bilirubin of 19.2. She is currently requiring high dose of pressors and is on the vent, sedated, unable to provide any history. Most of the information has been obtained from review of the chart and talking to the nursing staff. Review of systems could not be reliably obtained. The positive findings have been mentioned in the HPI. Past medical history is significant for: 1. COPD. 2. Hypertension. 3. Pneumonia. 4. Alcohol abuse. PAST SURGICAL HISTORY: No major surgery. SOCIAL HISTORY: The patient is currently an everyday smoker and a heavy drinker. No history of drug use. FAMILY HISTORY: No pertinent findings were noticed. ALLERGIES: NO KNOWN DRUG ALLERGIES. Medications currently include: 1. Lasix. 2. Lactulose. 3. Levofloxacin. 4. Narcan. 5. Levophed. 6. Protonix. 7. Piperacillin tazobactam. 8. Propofol. 9. Vancomycin. On examination, blood pressure is 105/50 with a pulse 97, temperature of 99.1. T-max is 101.9. She is 96% on 70% FiO2. General description is a middle-aged female, intubated on the vent. No distress. HEENT EXAMINATION: Scleral icterus is positive. Patient is orally intubated, limiting examination of oral cavity. NECK: No swelling was noticed. LUNGS: Unlabored breathing. Clear to auscultation anteriorly. No wheeze or crackle. HEART: S1, S2. Tachycardic. ABDOMEN: Soft. Slightly distended. No rebound or rigidity. EXTREMITIES: No edema of the feet. SKIN EXAMINATION: Some bruises. No rash or mass palpable. NEUROLOGICAL: Patient is intubated on the vent, sedated; unable to do complete neuro exam. LABS: Hemoglobin is 10, white count 69.1 with a BUN of 21, creatinine 1.36. Elevated bilirubin. Urine has not been significantly positive. Hepatitis panel negative. Influenza A and B PCR has been negative. Chest x-ray with diffuse infiltrates. DIAGNOSTIC IMPRESSION AND PLAN: Patient with sepsis in a patient who does have hypotension requiring pressor support; does have significantly elevated white count, now with a Gram-negative bacteremia in a patient with jaundice. Source is likely abdominal, likely concern for ascending cholangitis. PLAN: 1. Zosyn will be continued along with the Levaquin. 2. Recommend obtaining a CT of abdomen and pelvis with oral contrast when the patient's condition stabilizes. 3. Discontinue vancomycin. No Gram-positive has been grown. 4. Will follow up on the clinical condition and cultures to further adjust medication if needed. Thank you for this consultation. Will follow this patient along with you.
[2016-11-16] MEDS ORDERED: LEVOFLOXACIN 750MG-D5W PMX 750 MG in DEXTROSE/WATER 1 150ML.BAG IVPB SCH (20:00)
== END 2016-11-16 16:30 | disposition short-term general hospital (02) | DRG 871 ==
LOC: EDBD → EC 15:51 → MERGE 17:37 → 6ICU 17:37
PROVIDERS: ADMIT Hospitalist; ATTEND Hospitalist
PROC: 0BH18EZ Insertion of Endotracheal Airway into Trachea, Via Natural or Artificial Opening Endoscopic (ICD-10-PCS; principal; 2016-11-15)
PROC: 5A1935Z Respiratory Ventilation, Less than 24 Consecutive Hours (ICD-10-PCS; 2016-11-15)
PROC: 03HY32Z Insertion of Monitoring Device into Upper Artery, Percutaneous Approach (ICD-10-PCS; 2016-11-16)
PROC: 06HM33Z Insertion of Infusion Device into Right Femoral Vein, Percutaneous Approach (ICD-10-PCS; 2016-11-16)
PROC: 4A133B1 Monitoring of Arterial Pressure, Peripheral, Percutaneous Approach (ICD-10-PCS; 2016-11-16)
PROC: 4A133J1 Monitoring of Arterial Pulse, Peripheral, Percutaneous Approach (ICD-10-PCS; 2016-11-16)
DX: A41.9 Sepsis, unspecified organism (principal); R65.21 Severe sepsis with septic shock; J96.01 Acute respiratory failure with hypoxia; N17.0 Acute kidney failure with tubular necrosis; J15.6 Pneumonia due to other Gram-negative bacteria; I85.11 Secondary esophageal varices with bleeding; J44.0 Chronic obstructive pulmonary disease with (acute) lower respiratory infection; D68.4 Acquired coagulation factor deficiency; K92.2 Gastrointestinal hemorrhage, unspecified; K83.1 Obstruction of bile duct; E87.2 Acidosis; E87.8 Other disorders of electrolyte and fluid balance, not elsewhere classified; K70.11 Alcoholic hepatitis with ascites; K70.40 Alcoholic hepatic failure without coma; K70.31 Alcoholic cirrhosis of liver with ascites; E88.09 Other disorders of plasma-protein metabolism, not elsewhere classified; E87.70 Fluid overload, unspecified; F17.200 Nicotine dependence, unspecified, uncomplicated; I10 Essential (primary) hypertension
CPT/HCPCS: 36415; 36600; 70450; 71010; 71020; 80048; 80053; 80074; 81001; 82140; 82150; 82550; 82553; 82805; 83605; 83690; 83735; 83880; 84100; 84484; 85025; 85027; 85610; 85730; 86850; 86900; 86901; 87040; 87070; 87077; 87086; 87186; 87205; 87502; 93005; 94002; 94003; 94660